=== PATIENT | male | born 1975 | race Two or more races ===

== ENCOUNTER → 2020-02-06 | Outpatient (CLI) | payer OTHER ==
--- NOTE | 2020-02-09 08:02 | CARD ---
MR#: [id number] Date of Study: 02/06/2020 Ordering Physician: ARIANNA MEZA, Referring Physician: Daniel BELLO: Rosemary Anderson RDCS APPROVED REPORT INDICATION Abnormal ECG PROCEDURE The patient underwent an Exercise Stress Test using the [place] Protocol. Blood pressure, heart rate, a nd EKG were monitored. An Echocardiogram was performed by hotel maintenance technician in four stages in quad fashion. At peak stress four se lected images were obtained and placed side by side with resting images for comparison. STRESS ECHO FINDINGS The resting Echocardiogram showed normal left ventricular systolic contractility with an estimated Ej ection Fraction of about 60 %. The Resting Echocardiogram showed normal augmentation of myocardial wall segments using a 16 segment model. The Stress Echocardiogram showed normal augmentation of myocardial wall segments using a 16 segment m maribel. The Stress Echocardiogram left ventricular systolic contractility has an estimated Ejection Fraction of about 75%. Test Type: Exercise Stress Nurse/Tech: Vibha Haddad RN Test Indications: Abnormal EKG Cardiac History and Allergies: No known cardiac Medications: see EMR Medical History: see EMR Resting ECG: SR Resting Heart Rate: 67 bpm Resting Blood Pressure: 113/56mmHg Pretest Chest Pain: No chest pain Nurse/Tech Notes S1,S2 and lungs clear to auscultation. Stress Symptoms No chest pain or symptoms. POST EXERCISE Reason for Termination: Patient request Target HR: No Max HR: 176 bpm 99% of Maximum Predicted HR: 178 bpm Exercise duration: 12:00 min:sec, 4 Stage Exercise capacity: 12.8METs Max Blood Pressure: 151/74mmHg Blood Pressure response to exercise: Normal blood pressure response during stress. Heart Rate response to exercise: WNL Chest Pain: No. Arrhythmia: Yes. PVC ST Change: Yes. slight change in ST segment in leads II,III, and aVF and in leads V3-6 on page 17 of report. EKG returned to baseline by end of recovery. INTERPRETATION Stress EKG Conclusion: Baseline EKG showed sinus rhythm. Horizontal ST depressions and T wave invers ions inferolateral leads suggestive of ischemia. No arrhythmias. Preliminary Notification Critical Value: No <Conclusion> Treadmill exercise stress echocardiogram showed ischemic changes on EKG but ultrasound images did not show any evidence of ischemia or infarct. Normal left ventricle systolic function with ejection fraction estimated at 60%. Patient had excellent activity tolerance. Low risk for cardiac events. Signed by : Arianna Meza, Electronically Approved : 02/09/2020 08:01:54
== END ==
LOC: ECHO 12:36
PROVIDERS: ATTEND Internal Medicine Cardiovascular Disease
DX: I25.9 Chronic ischemic heart disease, unspecified (principal); R94.31 Abnormal electrocardiogram [ECG] [EKG]
CPT/HCPCS: 93017; 93350